=== PATIENT | female | born 1995 | race Caucasian/White ===

== ENCOUNTER 2017-02-08 22:32 | Emergency (ER) | payer SELFPAY ==
[2017-02-08 23:47] LABS: APPEARANCE,URINE CLEAR; BILIRUBIN,URINE NEGATIVE (NEGATIVE); GLUCOSE, URINE NEGATIVE (NEGATIVE); KETONES,URINE NEGATIVE (NEGATIVE); LEUKOCYTE ESTERASE,URINE TRACE (NEGATIVE); NITRITE,URINE NEGATIVE (NEGATIVE); PROTEIN,URINE NEGATIVE (NEGATIVE); URINE SPECIFIC GRAVITY 1.026; UROBILINOGEN,URINE NEGATIVE mg/dL (<2.0)
[2017-02-08 23:50] LABS: ABSOLUTE BASOPHILS # (AUTO) 0.1 10^3/uL (0.0-0.2); ABSOLUTE EOSINOPHILS # (AUTO) 0.6 10^3/uL (0.0-0.6); ABSOLUTE LYMPHOCYTES (AUTO) 4.3 10^3/uL (0.5-4.7); ABSOLUTE MONOCYTES (AUTO) 0.5 10^3/uL (0.1-1.4); ABSOLUTE NEUT (AUTO) 2.3 10^3/uL (1.7-8.2); EOSINOPHILS % (AUTO) 7.2 % (0-6); HEMATOCRIT 39.8 % (36.0-47.0); HEMOGLOBIN 13.6 g/dL (12.0-15.5); LYMPHOCYTES % (AUTO) 55.3 % (13-45); MEAN CORPUSCULAR HEMOGLOBIN 30.6 pg (27.0-33.4); MEAN CORPUSCULAR HGB CONC 34.3 g/dL (32.0-36.0); MEAN CORPUSCULAR VOLUME 89 fl (80-97); MONOCYTES % (AUTO) 6.3 % (3-13); RED BLOOD COUNT 4.45 10^6/uL (3.72-5.28); RED CELL DISTRIBUTION WIDTH 13.7 % (11.5-14.0); SEGMENTED NEUTROPHILS % (AUTO) 30.2 % (42-78); WHITE BLOOD COUNT 7.7 10^3/uL (4.0-10.5)
[2017-02-09 00:08] LABS: ALANINE AMINOTRANSFERASE 18 U/L (9-52); ALBUMIN 4.7 g/dL (3.5-5.0); ALKALINE PHOSPHATASE 56 U/L (38-126); ANION GAP 11 (5-19); ASPARTATE AMINO TRANSFERASE 16 U/L (14-36); BILIRUBIN,DIRECT 0.4 mg/dL (0.0-0.4); BILIRUBIN,TOTAL 0.5 mg/dL (0.2-1.3); BLOOD UREA NITROGEN 16 mg/dL (7-20); CALCIUM 9.9 mg/dL (8.4-10.2); CARBON DIOXIDE 25 mmol/L (22-30); CHLORIDE 106 mmol/L (98-107); CREATININE RESULT 1.25 mg/dL (0.52-1.25); GLUCOSE 88 mg/dL (75-110); LIPASE 52.4 U/L (23-300); POTASSIUM 4.1 mmol/L (3.6-5.0); SODIUM 141.8 mmol/L (137-145); TOTAL PROTEIN 7.2 g/dL (6.3-8.2)
[2017-02-09] MEDS ORDERED: ONDANSETRON 4 MG TAB.RAPDIS PO ONE (00:36)
[2017-02-09] MEDS ORDERED: KETOROLAC TROMETHAMINE 60 MG/2 ML SDV IM ONE (00:36)
--- NOTE | 2017-02-09 00:39 | ER Document Report ---
ED Medical Screen (RME) - General Chief Complaint: Pelvic Pain Stated Complaint: ABDOMINAL PAIN Time Seen by Provider: 02/09/17 00:32 Notes: 21-year-old female, chief complaint of right-sided pelvic pain. She states she thinks she is having pain from endometriosis. She had an ultrasound a few days ago by INCOME AUDITOR. She reports some nausea, denies vomiting, denies dysuria, denies flank pain or fever. She denies vaginal discharge or bleeding. She states she was just switched to oral contraceptive, took 1 dose and the pain started soon after causing her to come to the emergency department. TRAVEL OUTSIDE OF THE [place] IN LAST 30 DAYS: No - Related Data Allergies/Adverse Reactions: No Known Allergies Allergy (Unverified 04/09/16 11:38) Past Medical History - Past Medical History Cardiac Medical History: Denies: Hx Coronary Artery Disease, Hx Heart Attack, Hx Hypertension Pulmonary Medical History: Denies: Hx Asthma, Hx Bronchitis, Hx COPD, Hx Pneumonia Neurological Medical History: Denies: Hx Cerebrovascular Accident, Hx Seizures Renal/ Medical History: Denies: Hx Peritoneal Dialysis Musculoskeltal Medical History: Denies Hx Arthritis Past Surgical History: Reports: Hx Tonsillectomy. Denies: Hx Hysterectomy - Immunizations Hx Diphtheria, Pertussis, Tetanus Vaccination: Yes Physical Exam - Vital signs Vitals: Temp Pulse Resp BP Pulse Ox 98.1 F 92 18 115/73 97 02/08/17 23:30 02/08/17 23:30 02/08/17 23:30 02/08/17 23:30 02/08/17 23:30 - Abdominal Tenderness: Tender - Generalized tenderness in the mid to lower abdomen on the right side. No: McBurney's point, Guarding Course - Re-evaluation Re-evalutation: Patient appears mildly uncomfortable, no guarding of the abdomen, vital signs unremarkable. Patient declines a repeat ultrasound. - Vital Signs Vital signs: Temp Pulse Resp BP Pulse Ox 98.1 F 92 18 115/73 97 02/08/17 23:30 02/08/17 23:30 02/08/17 23:30 02/08/17 23:30 02/08/17 23:30 - Laboratory Result Diagrams: 02/08/17 23:40 02/08/17 23:40 Laboratory results interpreted by me: 0802/08/17 02/08/17 23:33 23:40 23:40 Seg Neutrophils % 30.2 L Lymphocytes % 55.3 H Eosinophils % 7.2 H Est GFR (Non-Af Amer) 54 L Ur Leukocyte Esterase TRACE H
[2017-02-09] MEDS ORDERED: MORPHINE SULFATE 10 MG/ML INJ IM ONE (01:53)
--- NOTE | 2017-02-09 01:53 | ER Document Report ---
ED General - General Chief Complaint: Pelvic Pain Stated Complaint: ABDOMINAL PAIN Time Seen by Provider: 02/09/17 00:32 Notes: Patient is a 21-year-old female presents with complaint of right-sided pelvic pain. She says she has had intermittent pelvic pain for year. She is being worked up by her SENIOR LEAD JAVA DEVELOPER doctor for possible endometriosis. She is scheduled to have a laparoscopy in the near future to look for endometriosis. Her doctor did try her on a new control pill. Today after taking control she developed sudden severe onset of right lower pelvic pain much worse than in the past. This happened approximately 30 minutes to an hour after taking control pill. No fevers. Some nausea. No vomiting. No abnormal vaginal discharge. No concern of sexual transmitted diseases. She has had recent pelvic exams by her data network architect. TRAVEL OUTSIDE OF THE [place] IN LAST 30 DAYS: No - Related Data Allergies/Adverse Reactions: No Known Allergies Allergy (Unverified 04/09/16 11:38) Past Medical History - Social History Smoking Status: Never Smoker Frequency of alcohol use: None Drug Abuse: None Family History: Reviewed & Not Pertinent Patient has suicidal ideation: No Patient has homicidal ideation: No - Past Medical History Cardiac Medical History: Denies: Hx Coronary Artery Disease, Hx Heart Attack, Hx Hypertension Pulmonary Medical History: Denies: Hx Asthma, Hx Bronchitis, Hx COPD, Hx Pneumonia Neurological Medical History: Denies: Hx Cerebrovascular Accident, Hx Seizures Renal/ Medical History: Denies: Hx Peritoneal Dialysis Musculoskeltal Medical History: Denies Hx Arthritis Past Surgical History: Reports: Hx Tonsillectomy. Denies: Hx Hysterectomy - Immunizations Hx Diphtheria, Pertussis, Tetanus Vaccination: Yes Review of Systems - Review of Systems Notes: My Normal Review Basic REVIEW OF SYSTEMS: CONSTITUTIONAL : Denies fever, chills, or sweats. Denies recent illness. GASTROINTESTINAL: Denies abdominal pain. Denies nausea, vomiting, or diarrhea. Denies constipation. Last BM: GENITOURINARY: Denies difficulty urinating, painful urination, burning, frequency, or blood in urine. FEMALE GENITOURINARY: Denies vaginal bleeding, abnormal or irregular periods. Has pelvic pain. MUSCULOSKELETAL: Denies neck or back pain or joint pain or swelling. SKIN: Denies rash or skin lesions. NEUROLOGICAL: Denies altered mental status or loss of consciousness. ALL OTHER SYSTEMS REVIEWED AND NEGATIVE. Physical Exam - Vital signs Vitals: Temp Pulse Resp BP Pulse Ox 98.1 F 92 18 115/73 97 02/08/17 23:30 02/08/17 23:30 02/08/17 23:30 02/08/17 23:30 02/08/17 23:30 - Notes Notes: General Appearance: Well nourished, alert, cooperative, no acute distress, moderate obvious discomfort. Vitals: reviewed, See vital signs table. Head: no swelling or tenderness to the head Eyes: PERRL, EOMI, Conjuctiva clear Mouth: No decreasd moisture Abdomen: Normal BS, soft, No rigidity, no actual abdominal tenderness to palpation. Patient has some pain to palpation over the right pelvic region., No guarding, no rebound, no abdominal masses, no organomegaly Extremities: strength 5/5 in all extremities, good pulses in all extremities, no swelling or tenderness in the extremities, no edema. Skin: warm, dry, appropriate color, no rash Neuro: speech clear, oriented x 3, normal affect, responds appropriately to questions. Course - Re-evaluation Re-evalutation: 02/09/17 04:20 Patient's ultrasound was negative for any type of torsion. I suspect that her pain most likely is related to endometriosis being that it is a chronic recurrent pain. Her laboratory results are on otherwise unremarkable. I feel she is safe to be discharged home. Encouraged her follow-up closely with her data network architect. Encouraged her to follow-up with her data network architect and call them to see whether or not they want her to continue the control being that she had some increase in her pain after starting it. Patient encouraged to return to ER if she has heavy bleeding, severe pain, fevers, or feels unwell. Patient agrees with plan and will be discharged home. I did inform the patient that pain medicine may make her little bit sleepy and therefore she should not drive when taking it. Patient and her friend agrees with plan and she will be discharged home. Dictation of this chart was performed using voice recognition software; therefore, there may be some unintended grammatical errors. - Vital Signs Vital signs: Temp Pulse Resp BP Pulse Ox 98.1 F 92 18 115/73 97 02/08/17 23:30 02/08/17 23:30 02/08/17 23:30 02/08/17 23:30 02/08/17 23:30 - Laboratory Result Diagrams: 02/08/17 23:40 02/08/17 23:40 Laboratory results interpreted by me: 02/08/17 02/08/17 02/08/17 23:33 23:40 23:40 Seg Neutrophils % 30.2 L Lymphocytes % 55.3 H Eosinophils % 7.2 H Est GFR (Non-Af Amer) 54 L Ur Leukocyte Esterase TRACE H Discharge - Discharge Clinical Impression: Pelvic pain Condition: Good Disposition: HOME, SELF-CARE Additional Instructions: Your ultrasound did not show evidence of torsion or abnormality the ovary. Your laboratory studies did not show any concerning findings. Please follow-up with your data network architect for further workup of your possible endometriosis. Please talk to him about whether or not you should continue your control. Please return to the ER if you have fevers, worsening pain, or feel unwell. Dictation of this chart was performed using voice recognition software; therefore, there may be some unintended grammatical errors. Prescriptions: Tramadol HCl [Ultram 50 mg Tablet] 50 mg PO Q6HP PRN #15 tablet PRN Reason: Forms: Return to Work
--- NOTE | 2017-02-09 03:07 | RADIOLOGY REPORT (SQ) ---
EXAM DESCRIPTION: U/S NON OB PEL TV W/DOPPLER COMPLETED DATE/TIME: 02/09/2017 2:39 am REASON FOR STUDY: right sided pelvic pain COMPARISON: CT, 02/04/2016. TECHNIQUE: Dynamic and static grayscale images acquired of the pelvis via transvaginal approach and recorded on PACS. Additional selected color Doppler and spectral images recorded. LIMITATIONS: None. FINDINGS: UTERUS: Contour normal. No mass. ENDOMETRIAL STRIPE: No focal or generalized thickening. No masses. CERVIX: No nabothian cysts. RIGHT OVARY: No abnormal masses. RIGHT OVARY DOPPLER: Normal arterial vascular flow without evidence for torsion. LEFT OVARY: Ovary not visualized. LEFT OVARY DOPPLER: Ovary not visualized. FREE FLUID: None noted. OTHER: No other significant finding. MEASUREMENTS: UTERUS: 6.2 cm. ENDOMETRIAL STRIPE: 0.2 cm thickness. RIGHT OVARY: 2.8 cm. LEFT OVARY: Not visualized. IMPRESSION: Endometrial hypoplasia/ atrophy. Left ovary not directly visualized. TECHNICAL DOCUMENTATION: JOB ID: [id number] [employer]- All Rights Reserved
[2017-02-09 04:20] VITALS: BP 118/78
== END 2017-02-09 04:20 | disposition home or self-care (01) ==
LOC: ER 22:32
DX: R10.2 Pelvic and perineal pain (principal); Z79.3 Long term (current) use of hormonal contraceptives
CPT/HCPCS: 99284; 96372; 36415; 83690; 85025; 81025; 80053; 81001; 76830; 93976; J1885; S0119; J2270

== ENCOUNTER 2017-03-01 18:48 | Emergency (ER) | payer OTHER ==
--- NOTE | 2017-03-01 19:05 | ER Document Report ---
ED Medical Screen (RME) - General Chief Complaint: Other Stated Complaint: POSSIBLE DEHYRATION Time Seen by Provider: 03/01/17 19:03 TRAVEL OUTSIDE OF THE [place] IN LAST 30 DAYS: No - HPI Notes: 03/01/17 19:03 Patient coming in for severe muscle cramps starting at 5:00 patient cannot lift of her head to look at me because of the cramping - Related Data Allergies/Adverse Reactions: No Known Allergies Allergy (Unverified 04/09/16 11:38) Past Medical History - Social History Chew tobacco use (# tins/day): No - 1ppd Frequency of alcohol use: None Drug Abuse: None - Past Medical History Cardiac Medical History: Denies: Hx Coronary Artery Disease, Hx Heart Attack, Hx Hypertension Pulmonary Medical History: Denies: Hx Asthma, Hx Bronchitis, Hx COPD, Hx Pneumonia Neurological Medical History: Denies: Hx Cerebrovascular Accident, Hx Seizures Renal/ Medical History: Denies: Hx Peritoneal Dialysis Musculoskeltal Medical History: Denies Hx Arthritis Past Surgical History: Reports: Hx Tonsillectomy. Denies: Hx Hysterectomy - Immunizations Hx Diphtheria, Pertussis, Tetanus Vaccination: Yes Review of Systems - Review of Systems Musculoskeletal: Muscle stiffness -: Yes All other systems reviewed and negative Physical Exam - Vital signs Vitals: Temp Pulse Resp BP Pulse Ox 98.5 F 131 H 20 106/67 98 03/01/17 18:54 03/01/17 18:54 03/01/17 18:54 03/01/17 18:54 03/01/17 18:54 - Respiratory Respiratory status: No respiratory distress Chest status: Nontender Breath sounds: Normal Chest palpation: Normal Course - Re-evaluation Re-evalutation: 03/01/17 19:04 Patient's significant other was seen day prior with extensive narcotics list - Vital Signs Vital signs: Temp Pulse Resp BP Pulse Ox 98.5 F 131 H 20 106/67 98 03/01/17 18:54 03/01/17 18:54 03/01/17 18:54 03/01/17 18:54 03/01/17 18:54
[2017-03-01] MEDS: NORMAL SALINE 1000 ML 1,000 ML IV PRN ×2 (19:21→21:46)
[2017-03-01 19:46] LABS: ANION GAP 18 (5-19); BLOOD UREA NITROGEN 10 mg/dL (7-20); CALCIUM 10.9 mg/dL (8.4-10.2); CARBON DIOXIDE 19 mmol/L (22-30); CHLORIDE 108 mmol/L (98-107); CREATININE RESULT 0.83 mg/dL (0.52-1.25); GLUCOSE 106 mg/dL (75-110); POTASSIUM 4.9 mmol/L (3.6-5.0); SODIUM 145.4 mmol/L (137-145)
[2017-03-01] MEDS ORDERED: LORAZEPAM INJ 2 MG/1 ML VIAL IV ONE (19:53)
--- NOTE | 2017-03-01 19:53 | ER Document Report ---
ED General <MARLON HOBSON - Last Filed: 03/01/17 21:05> - General Mode of Arrival: Ambulatory Information source: Patient TRAVEL OUTSIDE OF THE [place] IN LAST 30 DAYS: No - HPI Onset: Just prior to arrival - Refer to HPI notes Similar symptoms previously: No Recently seen / treated by doctor: No <GLO VICENTE - Last Filed: 03/01/17 21:45> - General Chief Complaint: Other Stated Complaint: POSSIBLE DEHYRATION Time Seen by Provider: 03/01/17 19:03 Notes: This 21-year-old female patient was brought to the emergency room by her boyfriend with complaint of possibly dehydrated and bad cramping in her neck. This started at 5 PM today. Her father was supposed to be getting at 6 PM she was getting ready to go to the wedding ceremony. Boyfriend describes the patient turning her neck to the right and unable to move it, later returning it to the left and unable to move it, and later hyperextended her neck with her head tilted back and was unable to look down. At this time she complains of some discomfort to her left neck. (MARLON HOBSON) - Related Data Allergies/Adverse Reactions: No Known Allergies Allergy (Unverified 04/09/16 11:38) Past Medical History - General Information source: Patient - Social History Smoking Status: Current Every Day Smoker Chew tobacco use (# tins/day): No - 1ppd Frequency of alcohol use: None Drug Abuse: None Family History: None Patient has suicidal ideation: No Patient has homicidal ideation: No - Medical History Medical History: Negative Past Surgical History: Reports: Hx Tonsillectomy - Immunizations Hx Diphtheria, Pertussis, Tetanus Vaccination: Yes <GLO VICENTE - Last Filed: 03/01/17 21:45> Review of Systems - Review of Systems Constitutional: No symptoms reported EENT: See HPI Cardiovascular: No symptoms reported Respiratory: No symptoms reported Gastrointestinal: No symptoms reported Genitourinary: No symptoms reported Female Genitourinary: No symptoms reported Musculoskeletal: See HPI Skin: No symptoms reported Hematologic/Lymphatic: No symptoms reported Neurological/Psychological: No symptoms reported -: Yes All other systems reviewed and negative <GLO VICENTE - Last Filed: 03/01/17 21:45> Physical Exam - HEENT Neck: Supple, Other - There is tenderness to palpate the left posterior cervical muscles and the left trapezius muscles. There is no limitation in cervical range of motion. <MARLON HOBSON - Last Filed: 03/01/17 21:05> - Vital signs Interpretation: Normal <GLO VICENTE - Last Filed: 03/01/17 21:45> - Vital signs Vitals: Temp Pulse Resp BP Pulse Ox 98.5 F 131 H 20 106/67 98 03/01/17 18:54 03/01/17 18:54 03/01/17 18:54 03/01/17 18:54 03/01/17 18:54 - Notes Notes: GENERAL: Alert, interacts well. No acute distress. HEAD: Normocephalic, atraumatic. EYES: Appear normal. Pupils equal, round, and reactive to light. ENT: Moist mucus membranes, tongue midline. NECK: Full range of motion. Supple. Trachea midline. Tenderness with palpation to the posterior cervical musculature and trapezius musculature. LUNGS: Clear to auscultation bilaterally, no wheezes, rales, or rhonchi. No respiratory distress. HEART: Regular rate and rhythm. No murmurs, gallops, or rubs. ABDOMEN: Soft, non-tender. Non-distended. Normal bowel sounds. EXTREMITIES: Moves all 4 extremities spontaneously. Normal strength. No edema. NEUROLOGICAL: Alert and oriented x3. Normal speech. No focal neurological deficits. GCS 15. PSYCH: Normal affect, normal mood. SKIN: Warm, dry, normal turgor. No rashes or lesions noted. (GLO VICENTE) Course - Laboratory Result Diagrams: 03/01/17 19:11 <MARLON HOBSON - Last Filed: 03/01/17 21:05> - Laboratory Result Diagrams: 03/01/17 19:11 <GLO VICENTE - Last Filed: 03/01/17 21:45> - Re-evaluation Re-evalutation: 03/01/17 21:04 Patient has been sleeping since receiving the Ativan. She is awakened for reexam, she does feel better and has no spasm of the neck muscles there is still some tenderness to the left posterior cervical muscles. (MARLON HOBSON) - Vital Signs Vital signs: Temp Pulse Resp BP Pulse Ox 98.5 F 131 H 20 106/67 98 03/01/17 18:54 03/01/17 18:54 03/01/17 18:54 03/01/17 18:54 03/01/17 18:54 - Laboratory Laboratory results interpreted by me: 03/01/17 19:11 Sodium 145.4 H Chloride 108 H Carbon Dioxide 19 L Calcium 10.9 H Discharge <MARLON HOBSON - Last Filed: 03/01/17 21:05> <GLO VICENTE - Last Filed: 03/01/17 21:45> - Discharge Clinical Impression: Muscle spasms of neck Condition: Stable Disposition: HOME, SELF-CARE Additional Instructions: For tonight you should rest. Try the soft cervical collar to support what is her head to allow the neck muscles to relax. Take Tylenol for pain if needed tonight. Apply moist heat to the painful muscles if needed. Follow up with local medical doctor tomorrow if not improving. RETURN TO THE EMERGENCY ROOM IF ANY NEW OR WORSENING SYMPTOMS. Scribe Attestation: 03/01/17 20:11 I personally performed the services described in the documentation, reviewed and edited the documentation which was dictated to the scribe in my presence, and it accurately records my words and actions. (MARLON HOBSON) Scribe Documentation - Scribe Written by Vickey:: Vickey Almeida 03/01/2017 21:45 acting as scribe for :: Annelise <GLO VICENTE - Last Filed: 03/01/17 21:45>
[2017-03-01] MEDS ORDERED: CYCLOBENZAPRINE HCL 10 MG TABLET PO ONE (21:01)
[2017-03-01] MEDS ORDERED: KETOROLAC TROMETHAMINE INJ/PF 30 MG/1 ML SDV IV ONE (21:05)
[2017-03-01 22:00] VITALS: BP 104/64
== END 2017-03-01 21:50 | disposition home or self-care (01) ==
LOC: ER 18:48
DX: M54.2 Cervicalgia (principal); M62.838 Other muscle spasm; F17.210 Nicotine dependence, cigarettes, uncomplicated
CPT/HCPCS: 99283; 96361; 96374; 96375; 36415; 83735; 84703; 80048; L0120; J1885; J2060; J7030

== ENCOUNTER 2017-04-22 13:32 | Emergency (ER) | payer OTHER ==
[2017-04-22 14:11] LABS: APPEARANCE,URINE SLIGHTLY-CLOUDY; BILIRUBIN,URINE NEGATIVE (NEGATIVE); GLUCOSE, URINE NEGATIVE (NEGATIVE); KETONES,URINE NEGATIVE (NEGATIVE); LEUKOCYTE ESTERASE,URINE NEGATIVE (NEGATIVE); NITRITE,URINE NEGATIVE (NEGATIVE); PROTEIN,URINE NEGATIVE (NEGATIVE); URINE SPECIFIC GRAVITY 1.011; UROBILINOGEN,URINE NEGATIVE mg/dL (<2.0)
[2017-04-22] MEDS ORDERED: OXYCODONE-ACETAMINOPHEN 5-325 MG TABLET PO ONE (14:19)
[2017-04-22] MEDS ORDERED: CEPHALEXIN 500 MG CAPSULE PO ONE (14:19)
--- NOTE | 2017-04-22 14:19 | ER Document Report ---
HPI - HPI Pain Level: 4 Context: Patient is a 21-year-old female who presents emergency department complaining of left labial irritation and tenderness for about 4 days. Denies any previous abscesses or ingrown hairs. Denies any previous history of MRSA. Denies any fevers or chills or drainage from the site. States she was unable to get an appointment with her TANK BUILDER AND ERECTOR - REPRODUCTIVE Reproductive: DENIES: : - DERM Skin Color: Normal Past Medical History - Social History Smoking Status: Current Every Day Smoker Chew tobacco use (# tins/day): - 1/2-1 ppd Frequency of alcohol use: Rare Drug Abuse: None Family History: None Patient has suicidal ideation: No Patient has homicidal ideation: No - Past Medical History Cardiac Medical History: Denies: Hx Coronary Artery Disease, Hx Heart Attack, Hx Hypertension Pulmonary Medical History: Denies: Hx Asthma, Hx Bronchitis, Hx COPD, Hx Pneumonia Neurological Medical History: Denies: Hx Cerebrovascular Accident, Hx Seizures Renal/ Medical History: Denies: Hx Peritoneal Dialysis Musculoskeltal Medical History: Denies Hx Arthritis Past Surgical History: Reports: Hx Tonsillectomy. Denies: Hx Hysterectomy - Immunizations Hx Diphtheria, Pertussis, Tetanus Vaccination: Yes Vertical Provider Document - CONSTITUTIONAL Notes: PHYSICAL EXAM GENERAL: Alert, interacts well. LUNGS: Clear to auscultation bilaterally, no wheezes, rales, or rhonchi. No respiratory distress. HEART: Regular rate and rhythm. No murmurs, gallops, or rubs. ABDOMEN: Soft, nondistended, nontender. No guarding, rebound, or rigidity.. Bowel sounds present in all 4 quadrants. FEMALE : Tender indurated area central fluctuance over the labia majora of the left side measuring approximately 1 cm in width. No evidence of lesions, lacerations, bruising or vesicles. NEUROLOGICAL: Alert and oriented x4. Normal speech. PSYCH: Normal affect, normal mood. SKIN: Warm, dry, normal turgor. No rashes or lesions noted. - INFECTION CONTROL TRAVEL OUTSIDE OF THE [place] IN LAST 30 DAYS: No - RESPIRATORY O2 Sat by Pulse Oximetry: 99 Course - Re-evaluation Re-evalutation: 04/22/17 15:16 Patient is a 21-year-old female is hemodynamically stable, no acute distress and afebrile. Site was I&D at the bedside with minimal purulent material. Initiated on antibiotics and educated on warm compresses and to follow-up with TANK BUILDER AND ERECTOR. Patient given strict return precautions otherwise stable for discharge home. - Vital Signs Vital signs: Temp Pulse Resp BP Pulse Ox 98.2 F 125 H 22 H 116/77 99 04/22/17 13:46 04/22/17 13:46 04/22/17 13:46 04/22/17 13:46 04/22/17 13:46 Procedures - Incision and Drainage Left Labia Type: Simple Incision Method: Incision made by scalpel Amount/type of drainage: 2cc purulent material Discharge - Discharge Clinical Impression: Cellulitis Qualifiers: Site of cellulitis: other site Qualified Code(s): L03.818 - Cellulitis of other sites Condition: Good Disposition: HOME, SELF-CARE Additional Instructions: Make an appointment with your TANK BUILDER AND ERECTOR for follow up CELLULITIS: You have an infection of your skin and underlying soft tissues called cellulitis. This is due to bacteria, which can enter through any break in the skin, or even through an irritated hair follicle. Untreated, cellulitis will usually worsen. Antibiotics are required. Usually, warm packs or warm soaks, and elevation of the infected area are recommended. You should start getting better within 24 to 36 hours. Most infections respond quickly to the right medication. Follow-up care is important, however, to check for abscess (boil) formation, unsuspected foreign body, or resistant infection. If you develop fever, chills, or if the area of infection is becoming rapidly more swollen or painful, call the doctor at once. ANTIBIOTIC THERAPY: You have been given an antibiotic prescription. It's important that you take all the medication, unless instructed otherwise by your physician. Failure to complete the entire course can result in relapse of your condition. Common side effects of antibiotics include nausea, intestinal cramping, or diarrhea. Women may develop vaginal yeast infections, and babies can get yeast (thrush) in the mouth following the use of antibiotics. Contact your physician if you develop significant side effects from this medication. Allergy to this antibiotic can result in hives, wheezing, faintness, or itching. If symptoms of allergy occur, stop the medication and call the doctor. ORAL NARCOTIC MEDICATION: You have been given a prescription for pain control. This medication is a narcotic. It's best taken with food, as nausea can result if taken on an empty stomach. Don't operate machinery or drive within six hours of taking this medication. Do not combine this medicine with alcohol, or with any medication which can cause sedation (such as cold tablets or sleeping pills) unless you get permission from the physician. Narcotics tend to cause constipation. If possible, drink plenty of fluids and eat a diet high in fiber and fruits. Please be aware that prescription narcotics also have the potential for abuse. People become addicted to these medications because of the general sense of wellbeing that they induce. This feeling along with a significant reduction in tension, anxiety, and aggression provides a stimulating seductive quality to these drugs. Once your pain is under control, we encourage you to discard your unused narcotics. FOLLOW-UP CARE: If you have been referred to a physician for follow-up care, call the physician s office for an appointment as you were instructed or within the next two days. If you experience worsening or a significant change in your symptoms, notify the physician immediately or return to the Emergency Department at any time for re-evaluation. Prescriptions: Cephalexin Monohydrate [Keflex 500 mg Capsule] 500 mg PO Q6H 5 Days capsule
[2017-04-22] MEDS ORDERED: HYDROCODONE/ACETAMINOPHEN 5-325 MG 6 TAB/DSPK PO PRN (15:09)
[2017-04-22 15:24] VITALS: BP 118/58
== END 2017-04-22 15:25 | disposition home or self-care (01) ==
LOC: ER 13:32
PROC: 0U9MXZZ Drainage of Vulva, External Approach (ICD-10-PCS; principal; 2017-04-22)
DX: N76.2 Acute vulvitis (principal); F17.210 Nicotine dependence, cigarettes, uncomplicated
CPT/HCPCS: 81001; 81025; 99283

== ENCOUNTER 2017-10-08 10:30 | Emergency (ER) | payer OTHER ==
[2017-10-08 10:39] VITALS: BP 107/70
[2017-10-08] MEDS ORDERED: CYCLOBENZAPRINE HCL 10 MG TABLET PO ONE (10:56)
--- NOTE | 2017-10-08 11:01 | ER Document Report ---
ED General - General Chief Complaint: Chest Wall Pain Stated Complaint: CHEST PAIN Time Seen by Provider: 10/08/17 10:50 Notes: 22-year-old female here with complaints of left-sided chest pain ongoing since yesterday. Pain is worse with deep breathing, movement of left arm/shoulder, lifting heavy objects. She reports that she lifts heavy objects at work and she feels that she may have strained a muscle. She has taken anti-inflammatory medications and Tylenol for the symptoms. She does not have any komal shortness of breath. Denies any lightheadedness diaphoresis numbness tingling. If she is holding her arm completely still and breathing normally, she does not have any pain. No prior history of PE. TRAVEL OUTSIDE OF THE [place] IN LAST 30 DAYS: No - Related Data Allergies/Adverse Reactions: No Known Allergies Allergy (Verified 04/22/17 13:45) Past Medical History - Social History Smoking Status: Current Every Day Smoker Family History: None Patient has suicidal ideation: No Patient has homicidal ideation: No - Past Medical History Cardiac Medical History: Denies: Hx Coronary Artery Disease, Hx Heart Attack, Hx Hypertension Pulmonary Medical History: Denies: Hx Asthma, Hx Bronchitis, Hx COPD, Hx Pneumonia Neurological Medical History: Denies: Hx Cerebrovascular Accident, Hx Seizures Renal/ Medical History: Denies: Hx Peritoneal Dialysis Musculoskeltal Medical History: Denies Hx Arthritis Past Surgical History: Reports: Hx Tonsillectomy. Denies: Hx Hysterectomy - Immunizations Hx Diphtheria, Pertussis, Tetanus Vaccination: Yes Review of Systems - Review of Systems Notes: See history of present illness for pertinent positive review of systems; otherwise all review of systems have been reviewed and are negative Physical Exam - Vital signs Vitals: Temp Pulse Resp BP Pulse Ox 98.5 F 88 14 107/70 100 10/08/17 10:38 10/08/17 10:38 10/08/17 10:38 10/08/17 10:38 10/08/17 10:38 - Notes Notes: PHYSICAL EXAMINATION: GENERAL: Well-appearing and in no acute distress. HEAD: Atraumatic, normocephalic. EYES: Pupils equal round and reactive to light, extraocular movements intact, sclera anicteric, conjunctiva are normal. ENT: nares patent, oropharynx clear without exudates. Moist mucous membranes. NECK: Normal range of motion, supple without lymphadenopathy LUNGS: CTAB and equal. Symmetric chest rise. No wheezes rales or rhonchi. Moderate tenderness palpation of the left mid anterior chest wall the patient states is the exact pain she is having HEART: Regular rate and rhythm without murmurs ABDOMEN: Soft, no tenderness. No facial grimacing/wincing upon palpation. No guarding, no rebound. EXTREMITIES: Normal range of motion, no pitting edema. No cyanosis. NEUROLOGICAL: Cranial nerves grossly intact. Normal sensory/motor exams. PSYCH: Normal mood, normal affect. SKIN: Warm, Dry, normal turgor, no rashes or lesions noted Course - Re-evaluation Re-evalutation: 10/08/17 11:03 MEDICAL DECISION MAKING: Concern for musculoskeletal chest wall pain Given history/exam, I have low clinical suspicion for ACS PE pneumothorax Will give a dose of Flexeril here and prescription for same to be used in addition to NSAIDs Instructed follow-up PCP next day or few and return precautions given Patient understands and agrees to the plan of care - Vital Signs Vital signs: Temp Pulse Resp BP Pulse Ox 98.5 F 88 14 107/70 100 10/08/17 10:38 10/08/17 10:38 10/08/17 10:38 10/08/17 10:38 10/08/17 10:38 Discharge - Discharge Clinical Impression: Chest wall pain Condition: Good Disposition: HOME, SELF-CARE Additional Instructions: You were seen in the emergency department at [facility]. He may have some muscle strain for which you can continue taking Tylenol and anti- inflammatory medications however you can add the prescribed muscle relaxer onto this regimen for added relief. If you were given any sedating medications, be sure not to operate heavy machinery (example - driving) and be sure you are not too sedated to walk appropriately. Please followup with your primary physician in the next few days for further management/evaluation. Please return to the emergency department for worsening of symptoms or any symptom that you deem to be concerning or life-threatening. Thank you for allowing us to be part of your care. This documentation serves as your work note. Please restrict lifting to no more than 5 pounds with the left arm (for the next 3 days). Prescriptions: Cyclobenzaprine HCl [Flexeril 5 mg Tablet] 10 mg PO TID #15 tablet
== END 2017-10-08 11:07 | disposition home or self-care (01) ==
LOC: ER 10:30
DX: R07.89 Other chest pain (principal); M79.602 Pain in left arm; M25.512 Pain in left shoulder; X50.0XXA Overexertion from strenuous movement or load, initial encounter; F17.200 Nicotine dependence, unspecified, uncomplicated
CPT/HCPCS: 99284

== ENCOUNTER 2017-11-13 13:07 | Emergency (ER) | payer OTHER ==
[2017-11-13] MEDS ORDERED: IBUPROFEN 600 MG TABLET PO ONE (13:24)
[2017-11-13] MEDS ORDERED: NORMAL SALINE 1000 ML 1,000 ML IV ONE (13:57)
--- NOTE | 2017-11-13 14:04 | ER Document Report ---
ED General - General Chief Complaint: Fever Stated Complaint: VOMITING, COUGH, FEVER, BACK PAIN Time Seen by Provider: 11/13/17 13:56 Mode of Arrival: Ambulatory Information source: Patient Notes: 22-year-old female presents with complaints of runny nose sore throat body aches of 1 day duration. Patient notes she may been exposed to something well she is in the emergency department with a friend recently. Patient notes one episode of nausea vomiting low back pain and cough TRAVEL OUTSIDE OF THE [place] IN LAST 30 DAYS: No - HPI Onset: Yesterday Onset/Duration: Persistent Quality of pain: Achy Severity: Mild Pain Level: 2 Associated symptoms: Body/muscle aches, Chills, Nonproductive cough, Fever, Nausea, Vomiting, Sinus pain/drainage Exacerbated by: Denies Relieved by: Denies Similar symptoms previously: No Recently seen / treated by doctor: No - Related Data Allergies/Adverse Reactions: No Known Allergies Allergy (Verified 11/13/17 13:12) Past Medical History - Social History Smoking Status: Current Every Day Smoker Cigarette use (# per day): Yes Chew tobacco use (# tins/day): No Smoking Education Provided: No Family History: None - Past Medical History Cardiac Medical History: Denies: Hx Coronary Artery Disease, Hx Heart Attack, Hx Hypertension Pulmonary Medical History: Denies: Hx Asthma, Hx Bronchitis, Hx COPD, Hx Pneumonia Neurological Medical History: Denies: Hx Cerebrovascular Accident, Hx Seizures Renal/ Medical History: Denies: Hx Peritoneal Dialysis Musculoskeltal Medical History: Denies Hx Arthritis Past Surgical History: Reports: Hx Tonsillectomy. Denies: Hx Hysterectomy - Immunizations Hx Diphtheria, Pertussis, Tetanus Vaccination: Yes Review of Systems - Review of Systems Notes: REVIEW OF SYSTEMS: CONSTITUTIONAL : Admits to fevers chills EENT: Admits to sore throat CARDIOVASCULAR: Denies chest pain. Denies palpitations or racing or irregular heart beat. Denies ankle edema. RESPIRATORY: Denies cough, cold, or chest congestion. Denies shortness of breath, difficulty breathing, or wheezing. GASTROINTESTINAL: Denies abdominal pain or distention. Denies nausea, vomiting , or diarrhea. Denies blood in vomitus, stools, or per rectum. Denies black, tarry stools. Denies constipation. GENITOURINARY: Admits to mild difficulty urinating FEMALE GENITOURINARY: Denies vaginal bleeding, heavy or abnormal periods, irregular periods. Denies vaginal discharge or odor. MUSCULOSKELETAL: Admits to body aches SKIN: Denies rash, lesions or sores. HEMATOLOGIC : Denies easy bruising or bleeding. LYMPHATIC: Denies swollen, enlarged glands. NEUROLOGICAL: Denies confusion or altered mental status. Denies passing out or loss of consciousness. Denies dizziness or lightheadedness. Denies headache. Denies weakness or paralysis or loss of use of either side. Denies problems with gait or speech. Denies sensory loss, numbness, or tingling. Denies seizures. PSYCHIATRIC: Denies anxiety or stress. Denies depression, suicidal ideation, or homicidal ideation. ALL OTHER SYSTEMS REVIEWED AND NEGATIVE. PHYSICAL EXAMINATION: GENERAL: Febrile but overall well-appearing, well-nourished and in no acute distress. HEAD: Atraumatic, normocephalic. EYES: Pupils equal round and reactive to light, extraocular movements intact, conjunctiva are normal. ENT: Nares patent, oropharynx clear without exudates. Moist mucous membranes. NECK: Normal range of motion, supple without lymphadenopathy LUNGS: Breath sounds clear to auscultation bilaterally and equal. No wheezes rales or rhonchi. HEART: Tachycardic ABDOMEN: Soft, nontender, nondistended abdomen. No guarding, no rebound. No masses appreciated. Female : deferred Musculoskeletal: Normal range of motion, no pitting or edema. No cyanosis. NEUROLOGICAL: Cranial nerves grossly intact. Normal speech, normal gait. Normal sensory, motor exams PSYCH: Normal mood, normal affect. SKIN: Warm, Dry, normal turgor, no rashes or lesions noted. Dictation was performed using [employer] voice recognition software Physical Exam - Vital signs Vitals: Temp Pulse Resp BP Pulse Ox 101.8 F H 160 H 16 112/75 97 11/13/17 13:18 11/13/17 13:18 11/13/17 13:18 11/13/17 13:18 11/13/17 13:18 Course - Re-evaluation Re-evalutation: 11/13/17 14:09 Patient's physical examination is benign compared to her vital signs of heart rate 160, patient will be treated with Motrin IV fluids I will reevaluate her heart rate, rapid strep urinalysis chest x-ray pending the patient probably has a viral infection given the multitude of complaints 11/13/17 16:29 Patient's heart rate has improved to 98 after IV fluids and Motrin, x-ray noted no pneumonia, strep was negative urinalysis notes no significant infection, patient will be discharged with close follow-up, it appears to be viral in nature 11/13/17 16:30 After performing a Medical Screening Examination, I estimate there is LOW risk for ACUTE CORONARY SYNDROME, PULMONARY EMBOLI, RESPIRATORY FAILURE, SEPSIS OR MENINGITIS, thus I consider the discharge disposition reasonable. I have reevaluated this patient multiple times and no significant life threatening changes are noted. The patient and I have discussed the diagnosis and risks, and we agree with discharging home with close follow-up. We also discussed returning to the Emergency Department immediately if new or worsening symptoms occur. We have discussed the symptoms which are most concerning (e.g., changing or worsening pain, trouble swallowing or breathing, neck stiffness, fever) that necessitate immediate return. - Vital Signs Vital signs: Temp Pulse Resp BP Pulse Ox 98.4 F 105 H 16 112/75 97 11/13/17 15:06 11/13/17 15:06 11/13/17 13:18 11/13/17 13:18 11/13/17 13:18 - Laboratory Result Diagrams: 11/13/17 13:57 11/13/17 13:57 Laboratory results interpreted by me: 11/13/17 11/13/17 11/13/17 13:57 13:57 15:00 WBC 16.9 H Seg Neuts % (Manual) 91 H Band Neutrophils % 1 L Lymphocytes % (Manual) 3 L Abs Neuts (Manual) 15.5 H BUN 6 L Urine Blood SMALL H - Diagnostic Test Radiology reviewed: Image reviewed - Chest x-ray 2 view notes no significant abnormality, Reports reviewed Discharge - Discharge Clinical Impression: Tachycardia Fever Qualifiers: Fever type: unspecified Qualified Code(s): R50.9 - Fever, unspecified URI (upper respiratory infection) Qualifiers: URI type: unspecified URI Qualified Code(s): J06.9 - Acute upper respiratory infection, unspecified Condition: Stable Disposition: HOME, SELF-CARE Instructions: Fever ([facility]), Viral Syndrome ([facility]) Additional Instructions: Follow up with your physician tomorrow for further care or return to the ED IMMEDIATELY if symptoms worsen or new concerns occur. If you cannot afford to follow up with your primary care physician a list of low cost clinics have been provided at the end of your discharge papers as well. Prescriptions: Hydrocodone Bit/Homatropine [Hycodan 5-1.5 mg Tablet] 1 tab PO Q4HP PRN #24 tablet PRN Reason: Forms: Return to Work
--- NOTE | 2017-11-13 14:29 | RADIOLOGY REPORT (SQ) ---
EXAM DESCRIPTION: CHEST 2 VIEWS COMPLETED DATE/TIME: 11/13/2017 2:14 pm REASON FOR STUDY: cough fever COMPARISON: 05/06/2011 EXAM PARAMETERS: NUMBER OF VIEWS: two views TECHNIQUE: Digital Frontal and Lateral radiographic views of the chest acquired. RADIATION DOSE: NA LIMITATIONS: none FINDINGS: LUNGS AND PLEURA: No opacities, masses or pneumothorax. No pleural effusion. MEDIASTINUM AND HILAR STRUCTURES: No masses or contour abnormalities. HEART AND VASCULAR STRUCTURES: Heart normal size. No evidence for failure. BONES: No acute findings. HARDWARE: None in the chest. OTHER: No other significant finding. IMPRESSION: NO ACUTE RADIOGRAPHIC FINDING IN THE CHEST. TECHNICAL DOCUMENTATION: JOB ID: [id number] [employer] All Rights Reserved Reading location - IP/workstation name: [email or web address]
[2017-11-13 14:30] LABS: HEMATOCRIT 40.7 % (36.0-47.0); HEMOGLOBIN 14.1 g/dL (12.0-15.5); MEAN CORPUSCULAR HEMOGLOBIN 30.4 pg (27.0-33.4); MEAN CORPUSCULAR HGB CONC 34.6 g/dL (32.0-36.0); MEAN CORPUSCULAR VOLUME 88 fl (80-97); PLATELET COUNT 283 10^3/uL (150-450); RED BLOOD COUNT 4.62 10^6/uL (3.72-5.28); RED CELL DISTRIBUTION WIDTH 13.6 % (11.5-14.0); WHITE BLOOD COUNT 16.9 10^3/uL (4.0-10.5)
[2017-11-13 14:46] LABS: ALANINE AMINOTRANSFERASE 24 U/L (9-52); ALBUMIN 4.7 g/dL (3.5-5.0); ALKALINE PHOSPHATASE 65 U/L (38-126); ANION GAP 14 (5-19); ASPARTATE AMINO TRANSFERASE 16 U/L (14-36); BILIRUBIN,DIRECT 0.2 mg/dL (0.0-0.4); BILIRUBIN,TOTAL 0.4 mg/dL (0.2-1.3); BLOOD UREA NITROGEN 6 mg/dL (7-20); CALCIUM 9.6 mg/dL (8.4-10.2); CARBON DIOXIDE 22 mmol/L (22-30); CHLORIDE 106 mmol/L (98-107); GLUCOSE 105 mg/dL (75-110); POTASSIUM 3.8 mmol/L (3.6-5.0); SODIUM 141.7 mmol/L (137-145); TOTAL PROTEIN 7.2 g/dL (6.3-8.2)
[2017-11-13 14:53] LABS: ABSOLUTE LYMPHOCYTES# (MANUAL) 0.5 10^3/uL (0.5-4.7); ABSOLUTE MONOCYTES # (MANUAL) 0.8 10^3/uL (0.1-1.4); ABSOLUTE NEUTROPHILS# (MANUAL) 15.5 10^3/uL (1.7-8.2); BAND NEUTROPHILS % (MANUAL) 1 % (3-5); BASOPHILS % (MANUAL) 0 % (0-2); EOSINOPHILS % (MANUAL) 0 % (0-6); LYMPHOCYTES % (MANUAL) 3 % (13-45); MONOCYTES % (MANUAL) 5 % (3-13); RBC MORPHOLOGY COMMENT NORMO-CYTIC/CHROMIC; SEGMENTED NEUTROPHILS % (MAN) 91 % (42-78); TOTAL CELLS COUNTED 100
[2017-11-13 14:54] LABS: PLATELET COMMENT ADEQUATE
[2017-11-13 15:42] LABS: APPEARANCE,URINE CLEAR; BILIRUBIN,URINE NEGATIVE (NEGATIVE); COLOR,URINE STRAW; GLUCOSE, URINE NEGATIVE (NEGATIVE); KETONES,URINE NEGATIVE (NEGATIVE); LEUKOCYTE ESTERASE,URINE NEGATIVE (NEGATIVE); NITRITE,URINE NEGATIVE (NEGATIVE); PROTEIN,URINE NEGATIVE (NEGATIVE); URINE SPECIFIC GRAVITY 1.003; UROBILINOGEN,URINE NEGATIVE mg/dL (<2.0)
[2017-11-13 16:52] VITALS: BP 100/61
== END 2017-11-13 16:34 | disposition home or self-care (01) ==
LOC: ER 13:07
DX: J06.9 Acute upper respiratory infection, unspecified (principal); R50.9 Fever, unspecified; R00.0 Tachycardia, unspecified; R11.10 Vomiting, unspecified; R05 Cough; M54.9 Dorsalgia, unspecified; R09.89 Other specified symptoms and signs involving the circulatory and respiratory systems; J02.9 Acute pharyngitis, unspecified; R11.2 Nausea with vomiting, unspecified; M79.1 Myalgia; F17.210 Nicotine dependence, cigarettes, uncomplicated
CPT/HCPCS: 99284; 96360; 36415; 87070; 87880; 85025; 81025; 80053; 81001; 71046; J7030

== ENCOUNTER 2018-04-07 08:23 | Emergency (ER) | payer OTHER ==
[2018-04-07 08:37] VITALS: BP 107/60
--- NOTE | 2018-04-07 09:48 | ER Document Report ---
ED Oral Problem - General Chief Complaint: Toothache Stated Complaint: TOOTHACHE Time Seen by Provider: 04/07/18 09:24 Mode of Arrival: Ambulatory Information source: Patient Notes: Patient is a 22-year-old female comes emergency room complaining of dental pain. Patient states she has 2 areas of discomfort the first is on the left lower and is the back wisdom tooth. She states that it is coming in sideways and is doing a lot of pushing on the other tooth causing pain. The most prominent discomfort she is experiencing today is the left upper back molar early this would be tooth #16. There is a small chip in the posterior portion of the tooth and she believes there is some decay there there is discomfort and pain it is sensitive to hot and cold. She has some swelling on the outside of her face. This all seems to have started about 3 days ago with the upper to starting first and then the lower tooth. She denies any other medical problems. TRAVEL OUTSIDE OF THE [place] IN LAST 30 DAYS: No - HPI Patient complains to provider of: Jaw pain, Swelling of face Onset: Other - 3 days Onset: Gradual Quality of pain: Pressure, Sharp, Throbbing Severity: Moderate Pain Level: 3 Context: Fractured tooth Swollen jaw/face: Mild Associated symptoms: Jaw pain, Toothache Worsened by: Other - Hot and cold sensation Relieved by: Nothing Similar symptoms previously: No Recently seen / treated by doctor/dentist: No - Related Data Allergies/Adverse Reactions: lidocaine Allergy (Verified 04/07/18 08:24) Past Medical History - General Information source: Patient - Social History Smoking Status: Current Every Day Smoker Cigarette use (# per day): Yes - Half-pack a day Chew tobacco use (# tins/day): No Smoking Education Provided: Yes Frequency of alcohol use: None Drug Abuse: None Family History: None, Reviewed & Not Pertinent Patient has suicidal ideation: No Patient has homicidal ideation: No - Past Medical History Cardiac Medical History: Denies: Hx Coronary Artery Disease, Hx Heart Attack, Hx Hypertension Pulmonary Medical History: Denies: Hx Asthma, Hx Bronchitis, Hx COPD, Hx Pneumonia Neurological Medical History: Reports: Hx Migraine. Denies: Hx Cerebrovascular Accident, Hx Seizures Renal/ Medical History: Denies: Hx Peritoneal Dialysis Musculoskeletal Medical History: Denies Hx Arthritis Past Surgical History: Reports: Hx Tonsillectomy. Denies: Hx Hysterectomy - Immunizations Hx Diphtheria, Pertussis, Tetanus Vaccination: Yes Review of Systems - Review of Systems Constitutional: No symptoms reported EENT: Dental problem Cardiovascular: No symptoms reported Respiratory: No symptoms reported Gastrointestinal: No symptoms reported Genitourinary: No symptoms reported Female Genitourinary: No symptoms reported Musculoskeletal: No symptoms reported Skin: No symptoms reported Hematologic/Lymphatic: No symptoms reported Neurological/Psychological: No symptoms reported -: Yes All other systems reviewed and negative Physical Exam - Vital signs Vitals: Temp Pulse Resp BP Pulse Ox 98.5 F 83 16 107/60 98 04/07/18 08:35 04/07/18 08:35 04/07/18 08:35 04/07/18 08:35 04/07/18 08:35 Interpretation: Normal - Notes Notes: PHYSICAL EXAMINATION: GENERAL: Well-appearing, well-nourished and in no acute distress. HEAD: normocephalic. Physical exam shows that patient has some mild swelling to the left side of her face mostly in the upper cheek area. Palpation of the area does not show any fluctuance or any indurations. EYES: Pupils equal round and reactive to light, extraocular movements intact, conjunctiva are normal. ENT: Nares patent, oropharynx clear without exudates. Moist mucous membranes. Dental exam patient shows that the back left wisdom tooth does appear to be matriculating on and inward motion. There does not seem to be any sign of decay or infection in the left lower wisdom tooth. The left upper back tooth # 16 appears to have a chip on the posterior side which I can hardly see. I had a can feel on the backside a roughness. There is redness around the whole tooth and gumline there is no exudate noted but severe tenderness to palpation. This is where the swelling on the face appears on external exam. NECK: Normal range of motion, supple without lymphadenopathy LUNGS: Breath sounds clear to auscultation bilaterally and equal. No wheezes rales or rhonchi. HEART: Regular rate and rhythm without murmurs ABDOMEN: Soft, nontender, nondistended abdomen. No guarding, no rebound. No masses appreciated. Female : deferred Musculoskeletal: Normal range of motion, no pitting or edema. No cyanosis. NEUROLOGICAL: Cranial nerves grossly intact. Normal speech, normal gait. Normal sensory, motor exams PSYCH: Normal mood, normal affect. SKIN: Warm, Dry, normal turgor, no rashes or lesions noted. Course - Re-evaluation Re-evalutation: 04/07/18 09:48 After performing a Medical Screening Examination, I estimate there is LOW risk for a DEEP SPACE INFECTION (e.g., TRAV'S ANGINA OR RETROPHARYNGEAL ABSCESS), MENINGITIS, INTRACRANIAL HEMORRHAGE, or AIRWAY COMPROMISE, thus I consider the discharge disposition reasonable. Also, there is no evidence or peritonitis, sepsis, or toxicity. I have reevaluated this patient multiple times and no significant life threatening changes are noted. The patient and I have discussed the diagnosis and risks, and we agree with discharging home with close follow-up with the understanding that symptoms and presentations can change. We also discussed returning to the Emergency Department immediately if new or worsening symptoms occur. We have discussed the symptoms which are most concerning (e.g., changing or worsening pain, trouble swallowing or breathing, neck stiffness or fever) that necessitate immediate return. I have discussed in length with patient the significance of getting her teeth taken care of. That the infection up around the area where she is at is in a spot that it could lead to other problems including ocular involved, and sinus involvement. She will take the antibiotics and states that her mother is working on getting into a dentist. 04/07/18 09:49 Patient has an allergy to lidocaine she states it breaks her out into a systemic rash and also makes her excessively nauseated. This eliminated my possibility of doing on a dental block at this time. Patient does look most uncomfortable and I do believe a small course of antibiotics and a little pain medication are warranted. - Vital Signs Vital signs: Temp Pulse Resp BP Pulse Ox 98.5 F 83 16 107/60 98 04/07/18 08:35 04/07/18 08:35 04/07/18 08:35 04/07/18 08:35 04/07/18 08:35 Discharge - Discharge Clinical Impression: Dental abscess Fracture, tooth Qualifiers: Encounter type: initial encounter Fracture type: closed Qualified Code(s): S02.5XXA - Fracture of tooth (traumatic), initial encounter for closed fracture Condition: Stable Disposition: HOME, SELF-CARE Instructions: Abscess ([facility]), [facility], Clindamycin ([facility]), Oral Narcotic Medication ([facility]) Additional Instructions: Continue with ibuprofen 800 mg every 8 hours with food. I am writing you for a few narcotic pain medication pills only to get you through the first couple of days hopefully the antibiotic will kick in or you can get to a dentist by that point in time. If you do not have prescription coverage I am giving you the good Rx card you may use it at the pharmacy for a good discount. I believe with this card [facility] is the cheapest for the 40 pills I am writing you for at about $27. [facility] is higher as is [facility]. You may apply the [employer] phone and you can check out the best value that way. Should you get increased facial swelling and pain return to ER for recheck. Prescriptions: Clindamycin HCl 300 mg PO Q6 #40 capsule Fluconazole [Diflucan] 150 mg PO ONCE PRN #1 tablet PRN Reason: Hydrocodone/Acetaminophen [[place] 5-325 mg Tablet] 1 tab PO Q4 PRN #5 tablet PRN Reason: Forms: Return to School, Return to Work Referrals: DRE CAMPO DO [Primary Care Provider] - Follow up as needed
== END 2018-04-07 10:08 | disposition home or self-care (01) ==
LOC: ER 08:23
DX: S02.5XXA Fracture of tooth (traumatic), initial encounter for closed fracture (principal); K04.7 Periapical abscess without sinus; K08.89 Other specified disorders of teeth and supporting structures; R22.0 Localized swelling, mass and lump, head; R68.84 Jaw pain; F17.210 Nicotine dependence, cigarettes, uncomplicated; X58.XXXA Exposure to other specified factors, initial encounter
CPT/HCPCS: 99282

== ENCOUNTER 2018-04-27 22:50 | Emergency (ER) | payer OTHER ==
[2018-04-27 23:08] VITALS: BP 106/64
[2018-04-27] MEDS ORDERED: DEXAMETHASONE SOD PHOS INJ 10 MG/1 ML VIAL IM ONE (23:19)
--- NOTE | 2018-04-27 23:24 | ER Document Report ---
ED General - General Chief Complaint: Flu Symptoms Stated Complaint: COUGH,RUNNY NOSE,EAR ACHE,SORE THROAT Time Seen by Provider: 04/27/18 23:10 Notes: She is a 22-year-old female presents with runny nose and congestion and pressure in her sinuses and pressure but behind her ears. Is been ongoing for a few days. No fevers. No vomiting. No difficulty breathing. No wheezing. She is a smoker. No history of asthma. No chronic medical problems. She is otherwise healthy. TRAVEL OUTSIDE OF THE [place] IN LAST 30 DAYS: No - Related Data Allergies/Adverse Reactions: lidocaine Allergy (Verified 04/07/18 08:24) Past Medical History - Social History Smoking Status: Current Every Day Smoker Frequency of alcohol use: None Drug Abuse: None Family History: None, Reviewed & Not Pertinent Patient has suicidal ideation: No Patient has homicidal ideation: No - Past Medical History Cardiac Medical History: Denies: Hx Coronary Artery Disease, Hx Heart Attack, Hx Hypertension Pulmonary Medical History: Denies: Hx Asthma, Hx Bronchitis, Hx COPD, Hx Pneumonia Neurological Medical History: Reports: Hx Migraine. Denies: Hx Cerebrovascular Accident, Hx Seizures Renal/ Medical History: Denies: Hx Peritoneal Dialysis Musculoskeletal Medical History: Denies Hx Arthritis Past Surgical History: Reports: Hx Tonsillectomy. Denies: Hx Hysterectomy - Immunizations Hx Diphtheria, Pertussis, Tetanus Vaccination: Yes Review of Systems - Review of Systems Notes: My Normal Review Basic REVIEW OF SYSTEMS: CONSTITUTIONAL : URI type symptoms. EENT: Sinus pressure, pressure behind her ears. RESPIRATORY: Denies cough, cold, or chest congestion. Denies shortness of breath, difficulty breathing, or wheezing. GASTROINTESTINAL: Denies abdominal pain. Denies nausea, vomiting, or diarrhea. NEUROLOGICAL: Denies altered mental status or loss of consciousness. Sinus headache. Denies weakness or paralysis or loss of use of either side. Denies problems with gait or speech. Denies sensory or motor loss. ALL OTHER SYSTEMS REVIEWED AND NEGATIVE. Physical Exam - Vital signs Vitals: Temp Pulse Resp BP Pulse Ox 98.5 F 86 17 106/64 99 04/27/18 23:04 04/27/18 23:04 04/27/18 23:04 04/27/18 23:04 04/27/18 23:04 - Notes Notes: General Appearance: Well nourished, alert, cooperative, no acute distress, no obvious discomfort. Obvious nasal congestion on exam. Vitals: reviewed, See vital signs table. Head: no swelling or tenderness to the head Eyes: PERRL, EOMI, Conjuctiva clear Mouth: No decreasd moisture Throat: No tonsillar inflammation, No airway obstruction, No lymphadenopathy Neck: Supple, no neck tenderness, No thyromegaly Ears: Clear fluid behind TMs. No erythema to TMs. Lungs: No wheezing, No rales, No rhonci, No accessory muscle use, good air exchange bilaterally. Heart: Normal rate, Regular rythm, No murmur, no rub Neuro: speech clear, oriented x 3, normal affect, responds appropriately to questions. Course - Re-evaluation Re-evalutation: 04/27/18 23:23 She has obvious URI. I will give her a shot of Decadron in hopes that this will help reduce some the inflammation around her sinuses and around the eustachian tubes to help relieve some of the pressure is causing her earaches and sinus pressure. I encouraged her to take [id number] nasal decongestants as well as to try Nasacort spray to help. I encouraged her return to ER immediately if she has fevers, difficulty breathing, vomiting, or feels unwell. Agrees with plan will be discharged home. Dictation of this chart was performed using voice recognition software; therefore, there may be some unintended grammatical errors. - Vital Signs Vital signs: Temp Pulse Resp BP Pulse Ox 98.5 F 86 17 106/64 99 04/27/18 23:04 04/27/18 23:04 04/27/18 23:04 04/27/18 23:04 04/27/18 23:04 Discharge - Discharge Clinical Impression: URI (upper respiratory infection) Qualifiers: URI type: unspecified URI Qualified Code(s): J06.9 - Acute upper respiratory infection, unspecified Additional Instructions: Please take [id number] nasal decongestants such as Sudafed or Advil Cold and Sinus. Please try cdya-nmy-pngutmg nasal spray such as Nasacort to help reduce inflammation inside your nose. Please stop smoking as smoking will make all the symptoms much worse. Please return to ER immediately if you have fevers , vomiting, difficulty breathing, or feel that you are worsening any way. Forms: Return to Work Referrals: DRE CAMPO DO [Primary Care Provider] - Follow up in 3-5 days
== END 2018-04-27 23:33 | disposition home or self-care (01) ==
LOC: ER 22:50
DX: J06.9 Acute upper respiratory infection, unspecified (principal); R09.89 Other specified symptoms and signs involving the circulatory and respiratory systems; J34.89 Other specified disorders of nose and nasal sinuses; R51 Headache; F17.200 Nicotine dependence, unspecified, uncomplicated; Z88.4 Allergy status to anesthetic agent
CPT/HCPCS: 99283

== ENCOUNTER 2018-10-04 06:24 | Emergency (ER) | payer OTHER ==
--- NOTE | 2018-10-04 08:54 | ER Document Report ---
ED Medical Screen (RME) - General Chief Complaint: Vaginal Pain Stated Complaint: ABDOMINAL PAIN Time Seen by Provider: 10/04/18 08:49 Primary Care Provider: DRE CAMPO DO [Primary Care Provider] - Follow up as needed Mode of Arrival: Ambulatory Information source: Patient Notes: Patient presents emergency department with complaints of a pelvic abscess for the last few weeks. Reports abdominal pain but with evaluation points and complains of right-sided pelvic pain. Reports history of endometriosis. Denies pain with void, denies other symptoms such as fever vomiting diarrhea. Requesting a female provider I have greeted and performed a rapid initial assessment of this patient. A comprehensive ED assessment and evaluation of the patient, analysis of test results and completion of the medical decision making process will be conducted by additional ED providers. Dictation of this chart was performed using voice recognition software; therefore, there may be some unintended grammatical errors. TRAVEL OUTSIDE OF THE [place] IN LAST 30 DAYS: No - Related Data Allergies/Adverse Reactions: lidocaine Allergy (Verified 10/04/18 08:50) Past Medical History - Past Medical History Cardiac Medical History: Denies: Hx Coronary Artery Disease, Hx Heart Attack, Hx Hypertension Pulmonary Medical History: Denies: Hx Asthma, Hx Bronchitis, Hx COPD, Hx Pneumonia Neurological Medical History: Reports: Hx Migraine. Denies: Hx Cerebrovascular Accident, Hx Seizures Renal/ Medical History: Denies: Hx Peritoneal Dialysis Musculoskeltal Medical History: Denies Hx Arthritis Past Surgical History: Reports: Hx Tonsillectomy. Denies: Hx Hysterectomy - Immunizations Hx Diphtheria, Pertussis, Tetanus Vaccination: Yes Physical Exam - Vital signs Vitals: Temp Pulse Resp BP Pulse Ox 97.6 F 92 15 100/61 96 10/04/18 06:31 10/04/18 06:31 10/04/18 06:31 10/04/18 06:31 10/04/18 06:31 Course - Vital Signs Vital signs: Temp Pulse Resp BP Pulse Ox 97.6 F 92 15 100/61 96 10/04/18 06:31 10/04/18 06:31 10/04/18 06:31 10/04/18 06:31 10/04/18 06:31 Doctor's Discharge - Discharge Referrals: DRE CAMPO DO [Primary Care Provider] - Follow up as needed
--- NOTE | 2018-10-04 09:30 | ER Document Report ---
ED General - General Chief Complaint: Vaginal Pain Stated Complaint: ABDOMINAL PAIN Time Seen by Provider: 10/04/18 08:49 Primary Care Provider: [facility] [Provider Group] - Follow up in 1 week DRE CAMPO DO [Primary Care Provider] - Follow up as needed Mode of Arrival: Ambulatory TRAVEL OUTSIDE OF THE [place] IN LAST 30 DAYS: No - HPI Notes: Patient is a 23-year-old female that presents to the emergency department for chief complaint of vaginal bump. Patient reports irritated area on her labia for the last 2 weeks. She denies any drainage. She denies any specific injury to the area. She is not sure if it is an abscess but believes it may be. She denies any associated fevers or chills. She had a normal menstrual cycle 2 weeks ago. She is sexually active with females and denies concern for . She reports some mild dysuria on occasion but none today. Patient also complained of a right lower quadrant abdominal pain which is been present for the last 3 months. She states the pain is sharp and fluctuates with her menstrual cycles. She states she was seen by gynecology and told she had endometriosis. She denies any change in her abdominal pain today compared to over the last 3 months. She denies any associated fever vomiting and diarrhea. Past Medical History: Negative Past Surgical History: Negative Social History: Reviewed in chart Family History: Reviewed and noncontributory for presenting illness Allergies: Reviewed, see documented allergy list. REVIEW OF SYSTEMS: CONSTITUTIONAL : No fever No chills No diaphoresis No recent illness EENT: No vision changes No congestion No sore throat CARDIOVASCULAR: No chest pain No palpitations RESPIRATORY: No shortness of breath No cough No difficulty breathing GASTROINTESTINAL: abdominal pain No nausea No vomiting No diarrhea GENITOURINARY: Vaginal lesion dysuria No hematuria No difficulty urinating MUSCULOSKELETAL: No back pain No leg pain No arm pain SKIN: No rashes vaginal lesions LYMPHATIC: No swollen, enlarged glands. NEUROLOGICAL: No lightheadedness No headache No weakness No paresthesias PSYCHIATRIC: No anxiety No depression PHYSICAL EXAMINATION: Vital signs reviewed, nursing noted reviewed. GENERAL: Well-appearing, well-nourished and in no acute distress. HEAD: Atraumatic, normocephalic. EYES: Eyes appear normal, extraocular movements intact, sclera anicteric, conjunctiva are normal. ENT: nares patent, oropharynx clear without exudates. Moist mucous membranes. NECK: Normal range of motion, supple without lymphadenopathy LUNGS: Breath sounds clear to auscultation bilaterally and equal. No wheezes rales or rhonchi. HEART: Regular rate and rhythm without murmurs ABDOMEN: Soft, nontender, normoactive bowel sounds. No rebound, guarding, or rigidity. No masses appreciated. : Left labial skin tags with no surrounding erythema, induration, or fluctuance. No vesicular lesions EXTREMITIES: Nontender, good range of motion, no pitting or edema. NEUROLOGICAL: No focal neurological deficits. Moves all extremities spontaneously Motor and sensory grossly intact on exam. PSYCH: Normal mood, normal affect. SKIN: Warm, Dry, normal turgor, no rashes or lesions noted on exposed skin - Related Data Allergies/Adverse Reactions: lidocaine Allergy (Verified 10/04/18 08:50) Past Medical History - General Information source: Patient - Social History Smoking Status: Current Every Day Smoker Chew tobacco use (# tins/day): No Frequency of alcohol use: Occasional Drug Abuse: None Family History: None, Reviewed & Not Pertinent Patient has suicidal ideation: No Patient has homicidal ideation: No - Past Medical History Cardiac Medical History: Denies: Hx Coronary Artery Disease, Hx Heart Attack, Hx Hypertension Pulmonary Medical History: Denies: Hx Asthma, Hx Bronchitis, Hx COPD, Hx Pneumonia Neurological Medical History: Reports: Hx Migraine. Denies: Hx Cerebrovascular Accident, Hx Seizures Renal/ Medical History: Denies: Hx Peritoneal Dialysis Musculoskeletal Medical History: Denies Hx Arthritis Past Surgical History: Reports: Hx Tonsillectomy. Denies: Hx Hysterectomy - Immunizations Hx Diphtheria, Pertussis, Tetanus Vaccination: Yes Physical Exam - Vital signs Vitals: Temp Pulse Resp BP Pulse Ox 97.6 F 92 15 100/61 96 10/04/18 06:31 10/04/18 06:31 10/04/18 06:31 10/04/18 06:31 10/04/18 06:31 Course - Re-evaluation Re-evalutation: 10/04/18 09:29 Vitals reviewed. Nursing notes reviewed. Patient's abdominal exam is soft with no focal tenderness. She has had this right lower quadrant abdominal pain for the last 3 months and I do not suspect acute appendicitis. She is afebrile currently and nontoxic in appearance. I did advise her to continue to follow with gynecology regarding the diagnosis of endometriosis if her symptoms are not improving. The bump she was concerned about on her external labia is consistent with skin tags. There is no surrounding folliculitis or cellulitis or abscess. I also discussed following with gynecology if the areas are rubbing on her undergarments and requiring elective removal. No further treatment indicated today. - Vital Signs Vital signs: Temp Pulse Resp BP Pulse Ox 98.6 F 82 16 100/60 99 10/04/18 08:54 10/04/18 08:54 10/04/18 08:54 10/04/18 08:54 10/04/18 08:54 - Laboratory Laboratory results interpreted by me: 10/04/18 09:00 Urine Urobilinogen 2.0 H Discharge - Discharge Clinical Impression: Skin tag of female perineum, Abdominal pain, lower Condition: Stable Disposition: HOME, SELF-CARE Instructions: Abdominal Pain ([facility]) Additional Instructions: Please return to the emergency department if you have any worsening, or concern of your symptoms. Please return to the emergency department if you develop chest pain, difficulty breathing, severe abdominal pain, or ongoing vomiting. Please follow-up with your primary care physician in 2-3 days and any other recommended physicians. If prescribed, take all medications as directed. If you have any questions or concerns do not hesitate to return the emergency department for evaluation. Do not shave in the affected area, keep area clean by washing daily with antibacterial soap. Referrals: DRE CAMPO DO [Primary Care Provider] - Follow up as needed [facility] [Provider Group] - Follow up in 1 week
[2018-10-04 09:32] LABS: APPEARANCE,URINE SLIGHTLY-CLOUDY; BILIRUBIN,URINE NEGATIVE (NEGATIVE); COLOR,URINE YELLOW; GLUCOSE, URINE NEGATIVE (NEGATIVE); KETONES,URINE NEGATIVE (NEGATIVE); LEUKOCYTE ESTERASE,URINE NEGATIVE (NEGATIVE); NITRITE,URINE NEGATIVE (NEGATIVE); PROTEIN,URINE NEGATIVE (NEGATIVE); URINE SPECIFIC GRAVITY 1.027
[2018-10-04 10:17] VITALS: BP 104/65
== END 2018-10-04 10:17 | disposition home or self-care (01) ==
LOC: ER 06:24
DX: N90.89 Other specified noninflammatory disorders of vulva and perineum (principal); R10.31 Right lower quadrant pain; R30.0 Dysuria; F17.200 Nicotine dependence, unspecified, uncomplicated; Z88.4 Allergy status to anesthetic agent
CPT/HCPCS: 81001; 81025; 99283

== ENCOUNTER 2019-11-13 22:12 | Emergency (ER) | payer SELFPAY ==
--- NOTE | 2019-11-13 23:27 | ER Document Report ---
ED Extremity Problem, Lower - General Chief Complaint: Ankle Injury Stated Complaint: FALL/RIGHT ANKLE INJURY, MOUTH PAIN Primary Care Provider: DRE CAMPO DO [Primary Care Provider] - Follow up as needed Mode of Arrival: Wheelchair Information source: Patient Notes: Patient is a 24-year-old female comes emergency room complaint right ankle pain. Patient states she was at a friend's house who had a hole in her floor but had covered with a thin piece of wood she stepped on a wooden went through the floor. She denies jamming the ankle she just feels like she rotated it in the wood. This occurred yesterday and patient states she had a hard time bearing weight on the right ankle. Patient also complains of dental problems in her front teeth. She has what she calls "Mountain Dew teeth". She states that she is having some discomfort in the front teeth right around the gumline. She denies any other medical problems. She admits to smoking. TRAVEL OUTSIDE OF THE [place] IN LAST 30 DAYS: No - HPI Patient complains to provider of: Injury, Pain, Swelling Location: Ankle Occurred: Yesterday Where: Other - Friend's house Onset/Duration: Sudden Quality of pain: Cramping, Throbbing Severity: Moderate Pain Level: 3 Context: Wearing shoes Recent injury: Yes Associated symptoms: Unable to bear weight Exacerbated by: Nothing Relieved by: Nothing - Related Data Allergies/Adverse Reactions: lidocaine Allergy (Verified 11/13/19 23:12) Past Medical History - General Information source: Patient - Social History Smoking Status: Current Every Day Smoker Frequency of alcohol use: Rare Drug Abuse: None Family History: None, Reviewed & Not Pertinent Patient has homicidal ideation: No - Past Medical History Cardiac Medical History: Denies: Hx Coronary Artery Disease, Hx Heart Attack, Hx Hypertension Pulmonary Medical History: Denies: Hx Asthma, Hx Bronchitis, Hx COPD, Hx Pneumonia Neurological Medical History: Reports: Hx Migraine. Denies: Hx Cerebrovascular Accident, Hx Seizures Renal/ Medical History: Denies: Hx Peritoneal Dialysis Musculoskeletal Medical History: Denies Hx Arthritis Past Surgical History: Reports: Hx Abdominal Surgery - laprascopic for endometriosis, Hx Tonsillectomy. Denies: Hx Hysterectomy - Immunizations Hx Diphtheria, Pertussis, Tetanus Vaccination: Yes Review of Systems - Review of Systems Constitutional: No symptoms reported EENT: No symptoms reported Cardiovascular: No symptoms reported Respiratory: No symptoms reported Gastrointestinal: No symptoms reported Genitourinary: No symptoms reported Female Genitourinary: No symptoms reported Musculoskeletal: See HPI, Joint swelling, Ankle swelling Skin: No symptoms reported Hematologic/Lymphatic: No symptoms reported Neurological/Psychological: No symptoms reported -: Yes All other systems reviewed and negative Physical Exam - Vital signs Vitals: Temp Pulse Resp BP Pulse Ox 98.4 F 115 H 13 129/76 H 99 11/13/19 22:16 11/13/19 22:16 11/13/19 22:16 11/13/19 22:16 11/13/19 22:16 Interpretation: Normal, Hypertensive, Tachycardic - General General appearance: Appears well, Alert Notes: PHYSICAL EXAMINATION: GENERAL: Well-appearing, well-nourished and in no acute distress. HEAD: Atraumatic, normocephalic. EYES: Pupils equal round and reactive to light, extraocular movements intact, conjunctiva are normal. ENT: Examination patient's area of concern #2 is her teeth. Examination shows she has decaying teeth throughout her mouth primarily in her frontal teeth. Patient has multiple areas of deep eroded enamel in the front almost to the gum lines. There is some mild erythema throughout the gumline area in the frontal upper teeth. LUNGS: Breath sounds clear to auscultation bilaterally and equal. No wheezes rales or rhonchi. HEART: Tachycardic rate without murmurs Musculoskeletal: examination patient's right ankle shows no swelling seen on visualization. She has some mild tenderness on the anterior portion of the proximal dorsum of the foot she has good flexion-extension of all the toes on the right foot. She has good rotation at the ankle with some discomfort noted. She has good dorsalis pedal pulse good posterior tibial pulses. There are no signs of abrasions are ecchymosis. NEUROLOGICAL: Normal speech, normal gait. Normal sensory, motor exams PSYCH: Normal mood, normal affect. SKIN: Warm, Dry, normal turgor, no rashes or lesions noted. - HEENT Head: Normocephalic, Atraumatic Eyes: Normal Pupils: PERRL - Respiratory Respiratory status: No respiratory distress Chest status: Nontender Breath sounds: Normal Chest palpation: Normal - Cardiovascular Rhythm: Regular Heart sounds: Normal auscultation Murmur: No - Abdominal Inspection: Normal Distension: No distension Bowel sounds: Normal Tenderness: Nontender Organomegaly: No organomegaly - Back Back: Normal, Nontender - Extremities General upper extremity: Normal inspection, Nontender, Normal color, Normal ROM, Normal temperature General lower extremity: Normal inspection, Nontender, Normal color, Normal ROM, Normal temperature, Normal weight bearing. No: Fernando's sign - Neurological Neuro grossly intact: Yes Cognition: Normal Orientation: AAOx4 Geronimo Coma Scale Eye Opening: Spontaneous Geronimo Coma Scale Verbal: Oriented Geronimo Coma Scale Motor: Obeys Commands Geronimo Coma Scale Total: 15 Speech: Normal Motor strength normal: LUE, RUE, LLE, RLE Sensory: Normal - Psychological Associated symptoms: Normal affect, Normal mood - Skin Skin Temperature: Warm Skin Moisture: Dry Skin Color: Normal Course - Re-evaluation Re-evalutation: 11/14/19 00:15 X-rays are negative for acute fractures. Will place patient in a stirrup splint nonweightbearing for 3 days after 3 days she will attempt to bear weight if still painful she will need to follow-up with orthopedist. She can ice down 3 times a day. As far as her teeth go and give [facility] and she can follow-up with her dentist that she has 1 first of the week. We will place her on clindamycin currently for infection type presentation. And she can take Tylenol alternate with Motrin or Tylenol in combination with Motrin every 8 hours for pain. - Vital Signs Vital signs: Temp Pulse Resp BP Pulse Ox 98.4 F 115 H 13 129/76 H 99 11/13/19 23:12 11/13/19 22:16 11/13/19 22:16 11/13/19 22:16 11/13/19 22:16 Procedures - Immobilization Right Ankle Time completed: 00:16 Pre-Proc Neuro Vasc Exam: Normal Immobilizer type: Ankle stirrup Performed by: RN, PCT Post-Proc Neuro Vasc Exam: Normal Alignment checked and good: Yes Discharge - Discharge Clinical Impression: Dental infection Ankle sprain Qualifiers: Encounter type: initial encounter Involved ligament of ankle: unspecified ligament Laterality: right Qualified Code(s): S93.401A - Sprain of unspecified ligament of right ankle, initial encounter Condition: Stable Disposition: HOME, SELF-CARE Instructions: Use of Crutches ([facility]), Ankle Stirrup Splint ([facility]), Ice & Elevation ([facility]), Dental Infection or Abscess ([facility]) Additional Instructions: SPRAIN: Your injury is a sprain. A sprain results from stretching or tearing of the ligaments, usually from a twisting injury. The ligaments will require time and protection in order to heal properly. Many sprains are quite disabling and should be taken seriously. The usual initial treatment of sprains is cold packs, elevation, and rest of the injured area. Your physician has assessed the seriousness of your ligament injury, and has outlined a treatment plan. Understand that this treatment may change, depending on how you progress. If a re-examination was recommended, it is important that you follow up as instructed. Call the doctor any time if there is severe pain, numbness, or loss of function in the injured area. SPLINT PRECAUTIONS: A splint has been placed. This will protect the area while healing begins. Your problem does NOT normally require a cast. It MUST, however, be held still! Keep the splint on ALL THE TIME until instructed to remove it by the doctor. As you begin to use the area, be careful. You shouldn't do anything which causes discomfort -- you may disturb the injury even with the splint in place. After the initial period of rest and elevation, if splint does not prevent pain when you move, come back. You may require placement of a different splint, or a cast. If there is unexpected severe pain, or numbness, discoloration, or swelling beyond the splint, you should return at once. If you feel that the splint has broken or become loose, come back. SPRAINED ANKLE: Your sprained ankle results from stretching or tearing of the ligaments which support the ankle. This usually results from twisting the foot inward and under. The ligaments will require time and protection in order to heal properly. Many ankle sprains are quite disabling, and should be taken seriously. The usual treatment for an ankle sprain is cold packs; protection with tape, splints, or wraps; elevation; and staying off the ankle for at least a day. As the ankle improves, you can walk IF it's not painful to bear weight. Sports are best postponed until healing is complete. More serious sprains usually require strengthening exercises after early healing. Your physician has assessed the seriousness of the ligament injury to your ankle. However, the treatment may change, depending on how your ankle progresses. If further exams were recommended, it is important that you follow through. Call the doctor if your foot becomes numb, painful, or severely swollen. ANKLE STIRRUP SPLINT: You are to use an ankle brace called a stirrup splint. This type of brace allows you to place greater stresses on the ankle without risk of re-injury, and is often used for more severe ankle injuries such as avulsion fractures and ligament ruptures. The splint can be worn over a sock or tape. For proper support, wear the splint with a shoe over it. It's important that the splint fit properly. Adjust the heel tension, if needed. If your splint has air bladders, peel back the bottom of each air bladder, then move the Velcro attachment of the heel strap up or down. Air bladder pressure can be adjusted by pulling up the valve at the top, threading the air tube down into the main bladder, then blowing air into the bladder or squeezing it out. The two sides of the stirrup can be moved forward or back on your ankle by changing the attachment of the main straps. If you are unable to use the ankle comfortably in the splint, return for re-evaluation. USE OF CRUTCHES: The doctor has recommended that you not bear weight at this time. You will need to use crutches. Adjust the crutches so the tops come to about two inches under the armpit while you are standing upright. Use your hands -- not your armpits -- to support your weight. To get into a chair, support yourself with one crutch on the injured side. Hold the chair with the other hand, then lower yourself while putting all your weight on the good leg. Going up stairs is `good leg up, step up, then bring up crutches and bad leg.' Down stairs is `bad leg and crutches down, then bring good leg down.' If you develop numbness or swelling in an arm or hand, you are using the crutches incorrectly. Return if you are having any problems with the crutches. ICE & ELEVATION: Apply ice packs frequently against the painful area. Many different schedules are recommended, such as "20 minutes on, 20 minutes off" or "one hour ice, two hours rest." If you need to work, you may need to go longer between ice treatments. You should plan to have the area ice packed AT LEAST one-fourth of the time. The ice should be applied over the wrap, tape, or splint, or over a layer of cloth -- not directly against the skin. Some ice bags have a built-in cloth and can be put directly on the skin. Your injured part should be elevated as much as possible over the next 48 hours. Try to keep the injury above the level of the heart. Avoid use of the injured area. Elevation and rest will decrease the swelling. USE OF [id number] IBUPROFEN: Ibuprofen (Advil, Nuprin, Medipren, Motrin IB) is a medication for fever and pain control. In addition, it has anti- inflammatory effects which may be b eneficial, especially in the treatment of injuries. It's best to take ibuprofen with food. Persons with ulcer disease or allergy to aspirin should notify their physician of this before taking ib uprofen. Ibuprofen can be given every four to six hours, for a total of four doses daily. Age Pain or fever dose Antiinflammatory dose 6-8 yr 200 mg (1 tab) 200 mg (1 tab) 9-11 yr 200 mg (1 tab) 200-400 mg (1-2 tab) 11-14 yr 200-400 mg (1-2 tab) 400 mg (2 tab) 15-adult 400 mg (2 tab) 600 mg (3 tab) FOLLOW-UP CARE: If you have been referred to a physician for follow-up care, call the physicians office for an appointment as you were instructed or within the next two days. If you experience worsening or a significant change in your symptoms, notify the physician immediately or return to the Emergency Department at any time for re-evaluation.Ankle Stirrup Splint You are to use an ankle brace called a stirrup splint. This type of brace allows you to place greater stresses on the ankle without risk of re-injury, and is often used for more severe ankle injuries such as avulsion fractures and ligament ruptures. The splint can be worn over a sock or tape. For proper support, wear the splint with a shoe over it. It's important that the splint fit properly. Adjust the heel tension, if needed. If your splint has air bladders, peel back the bottom of each air bladder, then move the Velcro attachment of the heel strap up or down. Air bladder pressure can be adjusted by pulling up the valve at the top, threading the air tube down into the main bladder, then blowing air into the bladder or s queezing it out. The two sides of the stirrup can be moved forward or back on your ankle by changing the attachment of the main straps. If you are unable to use the ankle comfortably in the splint, return for re-evaluation. Dental Infection or Abscess You have an infection, perhaps an abscess (pus formation) of the gum around one of your teeth, which is probably decayed. If there is an abscess, it may drain on its own or it may need to be opened or lanced. Severe swelling or drainage around a tooth usually means a deep dental abscess which usually requires evaluation and treatment by a dentist or oral surgeon. Antibiotics may be prescribed while awaiting dental treatment. If you develop high fever with chills, worsening pain, or increasing swelling in the area, see a dentist or oral surgeon immediately or return to the Emergency Department immediately. As we discussed you will need help with a dentist as soon as possible. You indicated that you have one that she will see sometime in the next week or so. Take all antibiotics as directed. As for the ankle I am giving the name of the orthopedic on-call today if after 3 days you still have pain discomfort you will need to contact orthopedist for follow-up. So at this point you need to be nonweightbearing for 3 days ice to the area 3 times a day and if after 3 days you attempt to bear weight is still painful will need to follow-up with the orthopedist. Should you have any concerns or problems return to ER for reevaluation. Prescriptions: Clindamycin HCl 300 mg PO Q6 #40 capsule Referrals: DRE CAMPO DO [Primary Care Provider] - Follow up as needed RAGHU RUSSO DO [ACTIVE STAFF] - Follow up as needed
--- NOTE | 2019-11-13 23:50 | RADIOLOGY REPORT (SQ) ---
EXAM DESCRIPTION: XR ANKLE 3 OR MORE VIEWS COMPLETED DATE/TME: 11/13/2019 23:21 CLINICAL HISTORY: 24 years, Female, Fell through floor COMPARISON: None. NUMBER OF VIEWS: 3 TECHNIQUE: 3 views right ankle LIMITATIONS: None. FINDINGS: Negative for fracture or dislocation. Soft tissues are unremarkable. IMPRESSION: Negative exam copyright 2011 [employer]- All Rights Reserved
[2019-11-14 00:52] VITALS: BP 106/64
== END 2019-11-14 00:46 | disposition home or self-care (01) ==
LOC: ER 22:12
PROC: 2W3QX1Z Immobilization of Right Lower Leg using Splint (ICD-10-PCS; principal; 2019-11-13)
DX: S93.401A Sprain of unspecified ligament of right ankle, initial encounter (principal); K08.89 Other specified disorders of teeth and supporting structures; M25.571 Pain in right ankle and joints of right foot; M79.89 Other specified soft tissue disorders; W17.2XXA Fall into hole, initial encounter; F17.200 Nicotine dependence, unspecified, uncomplicated
CPT/HCPCS: 99283